=== PATIENT | male | born 1960 | race Asian ===

== ENCOUNTER 2021-01-17 21:32 | Emergency (ER) | payer OTHER ==
[~2021-01-17] VITALS: Ht 160 cm; Wt 65.9 kg
[2021-01-17] MEDS ORDERED: MTH/1CAP7 PO (21:42)
[2021-01-17 23:12] LABS: APPEARANCE,URINE CLOUDY (CLEAR); BILIRUBIN,URINE NEGATIVE (NEGATIVE); GLUCOSE, URINE (UA) NEGATIVE (NEGATIVE); KETONES,URINE NEGATIVE (NEGATIVE); LEUKOCYTE ESTERASE ,URINE NEGATIVE (NEGATIVE); NITRATE,URINE NEGATIVE (NEGATIVE); OCCULT BLOOD,URINE LARGE (NEGATIVE); PH,URINE 6.5 (5.0-8.0); PROTEIN,URINE NEGATIVE (NEGATIVE); UROBILINOGEN,URINE 0.2 mg/dL (<=1.0)
[2021-01-17 23:20] LABS: RBC,URINE 26-50 /HPF (0-2); WBC,URINE 0-2 /HPF (0-5)
[2021-01-17 23:21] LABS: BACTERIA,URINE Rare /HPF (None Seen); SQUAMOUS EPITHELIAL CELL,UR Rare /LPF (None Seen)
[2021-01-18 00:58] VITALS: BP 136/93
== END 2021-01-18 01:10 | disposition home or self-care (01) ==
LOC: EMS 21:35
DX: R33.9 Retention of urine, unspecified (principal); R39.11 Hesitancy of micturition
CPT/HCPCS: 51702; 81001; 99284; Z7502